=== PATIENT | female | born 1985 | race Caucasian/White ===

== ENCOUNTER 2020-05-11 23:26 | Emergency (ER) | payer OTHER ==
[2020-05-11 23:39] VITALS: BP 107/71; PULSE 59; TEMP 97.8; BMI 24.6
[2020-05-12] MEDS ORDERED: LIDOCAINE 5% TOPICAL PATCH TP ONE (00:41)
[2020-05-12] MEDS ORDERED: ACETAMINOPHEN 325 MG TABLET (FP) PO ONE (00:42)
[2020-05-12] MEDS ORDERED: ACETAMINOPHEN 325 MG TABLET (FP) ONE (00:48)
[2020-05-12] MEDS ORDERED: LIDOCAINE 5% TOPICAL PATCH ONE (00:49)
--- NOTE | 2020-05-12 00:52 | PDOC ---
History of Present Illness - General Chief Complaint: Pain Stated Complaint: PAIN Time Seen by Provider: 05/12/20 00:04 History Source: Patient Exam Limitations: No Limitations - History of Present Illness Initial Comments: 05/12/20 00:43 Senthil Martinez is a 34 Y F with a PMH of Migraine, cervical Pinched nerve, s/p cholecystectomy, s/p hernia repair, presents with 3 days of Left neck pain. Patient reports that the pain started when she woke up, progressive, constant, 7/10 pain, radiating to left upper back and to left arm. Associated with numbness and tingling in left fingers. She reports that the pain is worse at night and worse with movements, bending forward, better with sleeping on right side. She took a muscle relaxer (doesn't remember the name) at home, w/o any relief. She denies any chest pain, SOB, nausea, vomiting, fever, chills, muscle weakness, change in Bowel/urinary habits She also reports a 3d of palpitations last week that resolved. She reports that she has been anxious recently because of stress from her work. She works at a [employer]. Family history significant for mother and father-DM Past History - Medical History Allergies/Adverse Reactions: Allergies Allergy/AdvReac Type Severity Reaction Status Date / Time No Known Allergies Allergy Verified 05/11/20 23:58 Home Medications: Ambulatory Orders Diazepam [Valium] 5 mg PO Q8H PRN #15 tablet MDD 3 05/12/20 Ibuprofen [Motrin -] 600 mg PO TID PRN #90 tablet MDD 3 05/12/20 Asthma: No Cancer: No Cardiac Disorders: No COPD: No Diabetes: No HTN: No Seizures: No Thyroid Disease: No - Surgical History Abdominal Surgery: Yes (INGUINAL HERNIA REPAIR) Cholecystectomy: Yes (2000 due to stones) - Immunization History Immunization Up to Date: Yes - Psycho-Social/Smoking History Smoking Status: No Smoking History: Never smoked Have you smoked in the past 12 months: No Number of Cigarettes Smoked Daily: 0 - Substance Abuse Hx (Audit-C & DAST Scrn) How often the patient has a drink containing alcohol: Never Score: In Men: 4 or > Positive; In Women: 3 or > Positive: 0 Screen Result (Pos requires Nsg. Audit-10AR): Negative Review of Systems - Review of Systems Able to Perform ROS?: Yes Is the patient limited Maori proficient: No Constitutional: No: Chills, Fever, Night Sweats, Weakness HEENTM: No: Blurred Vision, Recent change in vision, Nose Congestion, Throat Pain Respiratory: No: Cough, Shortness of Breath, Wheezing Cardiac (ROS): No: Chest Pain, Palpitations ABD/GI: No: Diarrhea, Nausea, Vomiting : No: Burning, Dysuria Musculoskeletal: Yes: Back Pain (upper left), Neck Pain (left side) Neurological: Yes: Headache, Numbness (left hand/fingers), Tingling (left hand/fingers). No: Weakness, Dizziness Psychiatric: Yes: Anxiety, Stressors (work) *Physical Exam - Vital Signs Last Vital Signs Temp Pulse Resp BP Pulse Ox 97.8 F 59 L 18 107/71 98 05/11/20 23:36 05/11/20 23:36 05/11/20 23:36 05/11/20 23:36 05/11/20 23:36 - Physical Exam General Appearance: Yes: Nourished, Appropriately Dressed HEENT: positive: EOMI, DAVI. negative: Nasal Congestion, Rhinorrhea Neck: positive: Tender (left, dorsal), Supple, Decreased range of motion (due to pain) Respiratory/Chest: positive: Lungs Clear, Normal Breath Sounds. negative: Cr ackles, Rales, Rhonchi Cardiovascular: positive: Regular Rhythm, Regular Rate, S1, S2. negative: JVD, Murmur Vascular Pulses: Carotid (R): 2+, Carotid (L): 2+, Dorsalis-Pedis (R): 2+, Doralis-Pedis (L): 2+ Gastrointestinal/Abdominal: positive: Normal Bowel Sounds, Soft. 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 - EKG - Lido-derm patch for pain - Tylenol 650 for pain Discharge - Discharge Information Problems reviewed: Yes Clinical Impression/Diagnosis: Muscle spasm, Neck pain Condition: Improved Disposition: HOME - Additional Discharge Information Prescriptions: Ibuprofen [Motrin -] 600 mg PO TID PRN #90 tablet MDD 3 PRN Reason: Pain Diazepam [Valium] 5 mg PO Q8H PRN #15 tablet MDD 3 PRN Reason: Pain - Follow up/Referral Referrals: Juan Diego Macdonald [Primary Care Provider] - - Patient Discharge Instructions Patient Printed Discharge Instructions: Neck Pain (Alternative Therapy), DI for Muscle Spasm Additional Instructions: You can take Valium 5 mg every 8 hours as needed for your muscle spasm and pain. However this medication may make you drowsy so it should not be mixed with alcohol or any other sedative medication do not drive after taking the medication. You can also take Motrin 600 mg every 8 hours as needed for pain prescription has been sent to your pharmacy for both of these medications return for any sudden weakness in your arms legs or any concerns you may have for p ersistent pain beyond 2 weeks he may need to follow-up with your primary care doctor for an outpatient MRI - Post Discharge Activity
--- NOTE | 2020-05-12 03:11 | PDOC ---
Documentation entered by Chris Silva SCRIBE, acting as scribe for Itzel Ashley MD. Itzel Ashley MD: This documentation has been prepared by the Shira larson Xhesika, SCRIBE, under my direction and personally reviewed by me in its entirety. I confirm that the documentation accurately reflects all work, treatment, procedures, and medical decision making performed by me. Attending Attestation - Resident Resident Name: RajZain - ED Attending Attestation I have performed the following: I have examined & evaluated the patient, The case was reviewed & discussed with the resident, I agree w/resident's findings & plan, Exceptions are as noted - HPI HPI: 05/12/20 00:34 Patient is a 34 year old female with a PMH of migraine, cholecystectomy, hernia repair who presents to the ED with 3 days of L neck pain. Pt states her L neck pain radiates to her L shoulder/ L scapula and to her L arm. Pt reports her pain is 7-8/10 in severity, associated with L finger and arm tingling. Pt states her symptoms are worse with movements and relieved when lying on her R side. 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 Macdonald 05/12/20 03:05 - Physicial Exam PE: 05/12/20 03:06 Awake alert no acute distress there is no midline cervical thoracic or lumbar spinal tenderness. There is noted left trapezial spasm. Lungs are clear bilaterally heart is regular 30 murmurs rubs or gallops abdomen is soft nont jacklyn skin is warm dry neurologically patient has 5 out of 5 upper extremity strength with both shoulder abduction abduction elbow flexion extension, wrist flexion extension, the median ulnar and radial nerves are intact and sensation is intact throughout - Medical Decision Making 05/12/20 03:06 34-year-old female here today with left neck pain radiating down her left arm noted trapezial spasm on her exam likely radicular pain neurologically patient is fully intact will discharge with prescription for Valium 5 mg to be taken every 8 hours and Motrin 600mg told to return for any new weakness numbness or persistent pain beyond 2 weeks Discharge - Discharge Information Problems reviewed: Yes Clinical Impression/Diagnosis: Muscle spasm, Neck pain Condition: Improved Disposition: HOME - Admission No - Additional Discharge Information Prescriptions: Diazepam [Valium] 5 mg PO Q8H PRN #15 tablet MDD 3 PRN Reason: Pain - Follow up/Referral Referrals: Juan Diego Macdonald [Primary Care Provider] - - Patient Discharge Instructions Patient Printed Discharge Instructions: DI for Muscle Spasm, Neck Pain (Alternative Therapy) Additional Instructions: You can take Valium 5 mg every 8 hours as needed for your muscle spasm and pain. However this medication may make you drowsy so it should not be mixed with alcohol or any other sedative medication do not drive after taking the medication. You can also take Motrin 600 mg every 8 hours as needed for pain prescription has been sent to your pharmacy for both of these medications return for any sudden weakness in your arms legs or any concerns you may have for persistent pain beyond 2 weeks he may need to follow-up with your primary care doctor for an outpatient MRI - Post Discharge Activity
[2020-05-12] MEDS ORDERED: LIDOCAINE PATCH REMOVAL MC SCH (22:00)
--- NOTE | 2020-05-14 10:13 | EKG ---
Test Reason : Blood Pressure : / mmHG Vent. Rate : 055 BPM Atrial Rate : 055 BPM P-R Int : 122 ms QRS Dur : 084 ms QT Int : 422 ms P-R-T Axes : 051 038 034 degrees QTc Int : 403 ms SINUS BRADYCARDIA NONSPECIFIC T WAVE ABNORMALITY ABNORMAL ECG WHEN COMPARED WITH ECG OF 12-APR-2016 07:23, NO SIGNIFICANT CHANGE WAS FOUND Confirmed by Danish Cooley ([id number]) on 05/14/2020 10:13:28 AM Referred By: Confirmed By:Danish Cooley
== END 2020-05-12 03:18 | disposition home or self-care (01) ==
LOC: JER 23:26
DX: M62.830 Muscle spasm of back (principal); M54.2 Cervicalgia
CPT/HCPCS: 93005; 93010; 99283-25

== ENCOUNTER 2021-01-28 13:34 | Emergency (ER) | payer OTHER ==
[2021-01-28 13:44] VITALS: BP 130/71; PULSE 60; TEMP 98.3; BMI 25.0
[2021-01-28] MEDS ORDERED: ACETAMINOPHEN/CAFFEINE/BUTALBITAL 1 TAB ONE (15:18)
[2021-01-28] MEDS ORDERED: ACETAMINOPHEN/CAFFEINE/BUTALBITAL 1 TAB PO ONE (15:19)
== END 2021-01-28 15:46 | disposition home or self-care (01) ==
LOC: JERFT 13:34
DX: G43.109 Migraine with aura, not intractable, without status migrainosus (principal)
CPT/HCPCS: 70450-TC; 99284-25

== ENCOUNTER 2021-06-04 17:25 | Emergency (ER) | payer OTHER ==
[2021-06-04 17:36] VITALS: TEMP 98; BMI 24.9
[2021-06-04 19:33] LABS: BASO % 0.1 % (0-2.0); EOS % 1.8 % (0-4.5); HEMATOCRIT 43.5 % (32.4-45.2); HEMOGLOBIN 15.3 GM/dL (10.7-15.3); LYMPH % 34.2 % (8-40); MCH 32.1 pg (25.7-33.7); MCHC 35.2 g/dl (32.0-36.0); MEAN CELL VOLUME 91.3 fl (80-96); MEAN PLT VOLUME 9.1 fl (7.5-11.1); MONO % 4.9 % (3.8-10.2); PLATELET COUNT 225 10^3/uL (134-434); RBC 4.77 M/mm3 (3.60-5.2); RDW 12.7 % (11.6-15.6); WHITE BLOOD COUNT 9.8 K/mm3 (4.0-10.0)
[2021-06-04 19:40] LABS: INR 0.96 (0.83-1.09); PROTHROMBIN TIME (PATIENT) 11.6 SEC (9.7-13.0)
[2021-06-04 19:43] LABS: ACTIVATED PTT 31.4 SECONDS (25.2-36.5)
[2021-06-04 19:53] LABS: CHLORIDE 102 mmol/L (98-107); SODIUM 137 mmol/L (136-145)
[2021-06-04 19:55] LABS: CALCIUM 9.5 mg/dL (8.5-10.1)
[2021-06-04 19:56] LABS: ALBUMIN 4.4 g/dl (3.4-5.0); ANION GAP 7 MMOL/L (8-16); BLOOD UREA NITROGEN 14.1 mg/dL (7-18); CO2 29 mmol/L (21-32); GLUCOSE,RANDOM 82 mg/dL (74-106); MAGNESIUM 2.5 mg/dL (1.8-2.4)
[2021-06-04 19:59] LABS: CREATININE 0.9 mg/dL (0.55-1.3); SGOT/AST 9 U/L (15-37); SGPT/ALT 23 U/L (13-61)
[2021-06-04 20:00] LABS: BILIRUBIN,TOTAL 0.4 mg/dL (0.2-1); TOT PROT 8.2 g/dl (6.4-8.2)
[2021-06-04 20:02] LABS: ALK PHOS 64 U/L (45-117)
[2021-06-04 20:44] VITALS: BP 123/76; PULSE 66
== END 2021-06-04 20:44 | disposition home or self-care (01) ==
LOC: JER 17:25
DX: R00.2 Palpitations (principal)
CPT/HCPCS: 36415; 71046-TC-FY; 80053; 82550; 83735; 84484; 84703; 85025; 85379; 85610; 85730; 93005; 93010; 99285-25

== ENCOUNTER 2021-10-25 08:16 | Emergency (ER) | payer OTHER ==
[2021-10-25 08:53] VITALS: BP 101/66; PULSE 62; TEMP 98.1; BMI 25.5
[2021-10-25 10:33] LABS: BASO % 0.2 % (0-2.0); EOS % 3.1 % (0-4.5); HEMATOCRIT 43.3 % (32.4-45.2); HEMOGLOBIN 14.6 GM/dL (10.7-15.3); LYMPH % 25.5 % (8-40); MCH 30.9 pg (25.7-33.7); MCHC 33.8 g/dl (32.0-36.0); MEAN CELL VOLUME 91.4 fl (80-96); MEAN PLT VOLUME 8.8 fl (7.5-11.1); MONO % 5.8 % (3.8-10.2); NEUT % 65.4 % (42.8-82.8); PLATELET COUNT 209 10^3/uL (134-434); RBC 4.74 M/mm3 (3.60-5.2); RDW 13.1 % (11.6-15.6); WHITE BLOOD COUNT 7.1 K/mm3 (4.0-10.0)
[2021-10-25 11:08] LABS: EPI CELLS 15 /uL (0-25.1); HYALINE CASTS 1 /uL (0-3.1); PH,URINE 5.5 (5.0-8.0); URINE APPEARANCE CLOUDY; URINE BACTERIA 19 /uL (0-1359); URINE BILIRUBIN NEGATIVE (NEGATIVE); URINE COLOR ORANGE; URINE GLUCOSE (UA) NEGATIVE (NEGATIVE); URINE KETONE NEGATIVE (NEGATIVE); URINE LEUK ESTERASE 1+ (NEGATIVE); URINE NITRITE NEGATIVE (NEGATIVE); URINE PROTEIN TRACE (NEGATIVE); URINE RBC 12025 /uL (0-23.9); URINE WBC 125 /uL (0-25.8)
== END 2021-10-25 15:30 | disposition home or self-care (01) ==
LOC: JER 08:16
DX: O03.9 Complete or unspecified spontaneous abortion without complication (principal)
CPT/HCPCS: 36415; 76817-TC; 81003; 84702; 84703; 85025; 86850; 86900; 86901; 87086; 99284-25

== ENCOUNTER 2021-11-11 02:49 | Emergency (ER) | payer OTHER ==
[2021-11-11 02:59] VITALS: BMI 25.5
[2021-11-11] MEDS ORDERED: SODIUM CHLORIDE 0.9% 500 ML INFUS.BAG IV ONE (03:05)
[2021-11-11 06:21] VITALS: BP 114/79; PULSE 90; TEMP 97
== END 2021-11-11 06:36 | disposition home or self-care (01) ==
LOC: JER 02:49
DX: F12.90 Cannabis use, unspecified, uncomplicated (principal)
CPT/HCPCS: 82962; 99284-25

== ENCOUNTER 2022-01-25 10:23 | Emergency (ER) | payer OTHER ==
[2022-01-25 10:41] VITALS: BP 115/80; PULSE 87; TEMP 97.6; BMI 25.4
== END 2022-01-25 12:40 | disposition home or self-care (01) ==
LOC: JERFT 10:23 → JER 10:23 → JERFT 12:40
DX: F41.9 Anxiety disorder, unspecified (principal)
CPT/HCPCS: 99281-25

== ENCOUNTER 2022-03-24 09:54 | Emergency (ER) | payer OTHER ==
[2022-03-24 10:20] VITALS: BP 103/69; PULSE 77; TEMP 98.5; BMI 24.0
[2022-03-24 12:11] LABS: BASO % 0.2 % (0-2.0); EOS % 0.8 % (0-4.5); HEMATOCRIT 43.5 % (32.4-45.2); HEMOGLOBIN 15.2 GM/dL (10.7-15.3); LYMPH % 25.7 % (8-40); MCH 31.6 pg (25.7-33.7); MEAN CELL VOLUME 90.5 fl (80-96); MEAN PLT VOLUME 9.2 fl (7.5-11.1); MONO % 5.2 % (3.8-10.2); NEUT % 68.1 % (42.8-82.8); PLATELET COUNT 197 10^3/uL (134-434); RBC 4.81 M/mm3 (3.60-5.2); RDW 13.1 % (11.6-15.6); WHITE BLOOD COUNT 6.8 K/mm3 (4.0-10.0)
[2022-03-24 12:25] LABS: CALCIUM 9.8 mg/dL (8.5-10.1)
[2022-03-24 12:26] LABS: ALBUMIN 4.2 g/dl (3.4-5.0); BLOOD UREA NITROGEN 7.7 mg/dL (7-18)
[2022-03-24 12:29] LABS: CREATININE 0.7 mg/dL (0.55-1.3)
[2022-03-24 12:30] LABS: BILIRUBIN,TOTAL 0.6 mg/dL (0.2-1)
[2022-03-24 13:49] LABS: CALCIUM 9.9 mg/dL (8.5-10.1)
[2022-03-24 13:50] LABS: ALBUMIN 4.1 g/dl (3.4-5.0); BLOOD UREA NITROGEN 10.2 mg/dL (7-18)
[2022-03-24 13:53] LABS: CREATININE 0.7 mg/dL (0.55-1.3)
[2022-03-24 13:55] LABS: BILIRUBIN,TOTAL 0.4 mg/dL (0.2-1); TOT PROT 7.8 g/dl (6.4-8.2)
== END 2022-03-24 13:46 | disposition home or self-care (01) ==
LOC: JER 09:54
DX: R20.2 Paresthesia of skin (principal)
CPT/HCPCS: 36415; 71046-TC-FY; 80053; 84443; 84484; 84703; 85025; 93005; 93010; 99285-25

== ENCOUNTER 2022-11-05 17:18 | Emergency (ER) | payer OTHER ==
[2022-11-05 17:25] VITALS: RESP 14; BMI 24.5
[2022-11-05 18:08] VITALS: BP 91/61; PULSE 81; TEMP 100
[2022-11-05] MEDS ORDERED: ONDANSETRON 4 MG/2 ML VIAL IVPUSH ONE (18:09)
[2022-11-05] MEDS ORDERED: SODIUM CHLORIDE 0.9% 500 ML INFUS.BAG IV ONE (18:09)
[2022-11-05] MEDS ORDERED: ONDANSETRON 4 MG/2 ML VIAL ONE (18:15)
[2022-11-05 18:57] LABS: BASO % 0.2 % (0-2.0); EOS % 1.2 % (0-4.5); HEMATOCRIT 41.2 % (32.4-45.2); LYMPH % 19.3 % (8-40); MCH 30.9 pg (25.7-33.7); MEAN CELL VOLUME 90.9 fl (80-96); MEAN PLT VOLUME 8.7 fl (7.5-11.1); NEUT % 73.3 % (42.8-82.8); PLATELET COUNT 232 10^3/uL (134-434); RBC 4.54 M/mm3 (3.60-5.2); RDW 12.8 % (11.6-15.6); WHITE BLOOD COUNT 10.5 K/mm3 (4.0-10.0)
[2022-11-05 19:01] LABS: EPI CELLS 26 /uL (0-25.1); HYALINE CASTS 0 /uL (0-3.1); URINE APPEARANCE CLEAR; URINE BACTERIA 564 /uL (0-1359); URINE BILIRUBIN NEGATIVE (NEGATIVE); URINE COLOR YELLOW; URINE GLUCOSE (UA) NEGATIVE (NEGATIVE); URINE KETONE NEGATIVE (NEGATIVE); URINE LEUK ESTERASE 2+ (NEGATIVE); URINE NITRITE NEGATIVE (NEGATIVE); URINE PROTEIN NEGATIVE (NEGATIVE); URINE RBC 14 /uL (0-23.9); URINE UROBILINOGEN 0.2 mg/dL (0.2-1.0); URINE WBC 29 /uL (0-25.8)
[2022-11-05 19:15] LABS: CHLORIDE 99 mmol/L (98-107); SODIUM 134 mmol/L (136-145)
[2022-11-05 19:19] LABS: CALCIUM 9.1 mg/dL (8.5-10.1)
[2022-11-05 19:20] LABS: ALBUMIN 3.4 g/dl (3.4-5.0); BLOOD UREA NITROGEN 12.6 mg/dL (7-18); CO2 28 mmol/L (21-32); GLUCOSE,RANDOM 103 mg/dL (74-106); MAGNESIUM 2.2 mg/dL (1.8-2.4)
[2022-11-05 19:23] LABS: CREATININE 0.8 mg/dL (0.55-1.3); SGOT/AST 62 U/L (15-37)
[2022-11-05 19:24] LABS: BILIRUBIN,TOTAL 0.4 mg/dL (0.2-1)
[2022-11-05 19:25] LABS: TOT PROT 7.3 g/dl (6.4-8.2)
[2022-11-05 19:26] LABS: ALK PHOS 53 U/L (45-117)
[2022-11-05 19:34] LABS: ANION GAP 7 MMOL/L (8-16); SGPT/ALT 27 U/L (13-61)
== END 2022-11-05 21:25 | disposition home or self-care (01) ==
LOC: JER 17:18
PROC: 3E033GC Introduction of Other Therapeutic Substance into Peripheral Vein, Percutaneous Approach (ICD-10-PCS; principal; 2022-11-05)
DX: O26.891 Other specified pregnancy related conditions, first trimester (principal); R53.83 Other fatigue; Z3A.01 Less than 8 weeks gestation of pregnancy
CPT/HCPCS: 36415; 80053; 81003; 83735; 84132; 84443; 85025; 87086; 93005; 93010; 99284-25

== ENCOUNTER 2023-06-22 18:20 | Inpatient (IN) | payer OTHER ==
[2023-06-22] MEDS ORDERED: BUTORPHANOL TARTRATE 1 MG/ML VIAL IVPB PRN (20:06)
[2023-06-22 20:10] VITALS: BMI 30.1
[2023-06-22 20:17] LABS: HEMATOCRIT 39.7 % (32.4-45.2); HEMOGLOBIN 14.1 GM/dL (10.7-15.3); LYMPH % 25.1 % (8-40); MCH 31.7 pg (25.7-33.7); MCHC 35.7 g/dl (32.0-36.0); MEAN PLT VOLUME 9.4 fl (7.5-11.1); NEUT % 66.9 % (42.8-82.8); PLATELET COUNT 165 10^3/uL (134-434); RBC 4.46 M/mm3 (3.60-5.2); RDW 13.9 % (11.6-15.6); WHITE BLOOD COUNT 8.9 K/mm3 (4.0-10.0)
[2023-06-22 20:29] LABS: INR 0.87 (0.83-1.09); PROTHROMBIN TIME (PATIENT) 10.1 SEC (9.7-13.0)
[2023-06-22] MEDS ORDERED: ELECTROLYTE-148 SOLN 1,000 ML IV SCH (20:30)
[2023-06-22 20:32] LABS: ACTIVATED PTT 27.2 SECONDS (25.2-36.5)
[2023-06-22 20:33] LABS: BLOOD UREA NITROGEN 7.8 mg/dL (7-18); CALCIUM 9.3 mg/dL (8.5-10.1)
[2023-06-22 20:36] LABS: CREATININE 0.6 mg/dL (0.55-1.3)
[2023-06-22 21:26] LABS: HIV INTERPRETATION NEGATIVE (NEGATIVE)
[2023-06-22] MEDS ORDERED: OXYTOCIN 30 UNITS in 0.9% NS 30 UNIT/500 ML INFUS.BAG IVPB SCH (22:00)
[2023-06-22] MEDS ORDERED: OXYTOCIN 20 UNITS in 0.9% NS 20 UNIT/1,000 ML INFUS.BAG IV ONE (22:38)
[2023-06-22] MEDS ORDERED: BENZOCAINE 20% 57 GM BOTTLE TP PRN (22:43)
[2023-06-22] MEDS ORDERED: BENZOCAINE 28 GM HEMORRHOIDAL OINTMENT TP PRN (22:43)
[2023-06-22] MEDS ORDERED: BISACODYL 10 MG SUPP.RECT RC PRN (22:43)
[2023-06-22] MEDS ORDERED: WITCH HAZEL 50% (TUCKS) 40 PAD/JAR PAD TP PRN (22:43)
[2023-06-22] MEDS ORDERED: METHYLERGONOVINE MALEATE 0.2 MG/1 ML AMP IM PRN (22:43)
[2023-06-22] MEDS ORDERED: oxyCODONE HCL 5 MG TABLET PO PRN (22:43)
[2023-06-22] MEDS ORDERED: ACETAMINOPHEN 325 MG TABLET (FP) PO PRN (22:43)
[2023-06-22] MEDS ORDERED: OXYTOCIN 20 UNITS in 0.9% NS 20 UNIT/1,000 ML INFUS.BAG IV SCH (22:45)
[2023-06-23 00:05] LABS: CORD BASE EXCESS -3.7 mmol/L (0-2); CORD HCO3 21.3 mmHg (20-29); CORD PCO2 38.9 mmHg (30-78); CORD pH 7.357 (7.14-7.44)
[2023-06-23] MEDS ORDERED: IBUPROFEN 600 MG TABLET (FP) PO ONE (00:34)
[2023-06-23] MEDS: IBUPROFEN 600 MG TABLET (FP) PO PRN ×3 (00:38→17:21)
[2023-06-23 08:45] LABS: BASO % 0.2 % (0-2.0); EOS % 0.4 % (0-4.5); HEMATOCRIT 35.4 % (32.4-45.2); HEMOGLOBIN 12.6 GM/dL (10.7-15.3); LYMPH % 17.4 % (8-40); MCH 31.8 pg (25.7-33.7); MCHC 35.6 g/dl (32.0-36.0); MEAN CELL VOLUME 89.3 fl (80-96); MEAN PLT VOLUME 9.3 fl (7.5-11.1); MONO % 7.2 % (3.8-10.2); NEUT % 74.8 % (42.8-82.8); PLATELET COUNT 150 10^3/uL (134-434); RBC 3.96 M/mm3 (3.60-5.2); RDW 13.7 % (11.6-15.6); WHITE BLOOD COUNT 13.8 K/mm3 (4.0-10.0)
[2023-06-23] MEDS: PRENATAL VITAMINS W/ FOLIC ACID TABLET (FP) PO SCH (09:26)
[2023-06-23] MEDS: FERROUS SO4 325 MG TABLET (FP) PO SCH ×3 (09:26→17:21)
[2023-06-23] MEDS ORDERED: SENNOSIDES/DOCUSATE COMBO (SENNA PLUS) TABLET (UD) PO PRN (22:00)
[2023-06-24] MEDS: PRENATAL VITAMINS W/ FOLIC ACID TABLET (FP) PO SCH (09:25)
[2023-06-24] MEDS: FERROUS SO4 325 MG TABLET (FP) PO SCH ×3 (09:25→17:42)
[2023-06-24 18:13] LABS: BASO % 0.1 % (0-2.0); EOS % 1.3 % (0-4.5); HEMATOCRIT 33.5 % (32.4-45.2); HEMOGLOBIN 11.4 GM/dL (10.7-15.3); LYMPH % 25.8 % (8-40); MCH 31.6 pg (25.7-33.7); MCHC 34.1 g/dl (32.0-36.0); MEAN CELL VOLUME 92.5 fl (80-96); MEAN PLT VOLUME 9.9 fl (7.5-11.1); MONO % 5.3 % (3.8-10.2); NEUT % 67.5 % (42.8-82.8); PLATELET COUNT 167 10^3/uL (134-434); RBC 3.62 M/mm3 (3.60-5.2); RDW 13.6 % (11.6-15.6); WHITE BLOOD COUNT 8.4 K/mm3 (4.0-10.0)
[2023-06-25] MEDS: FERROUS SO4 325 MG TABLET (FP) PO SCH ×2 (09:33→13:00)
[2023-06-25] MEDS: PRENATAL VITAMINS W/ FOLIC ACID TABLET (FP) PO SCH (09:33)
[2023-06-25 10:24] VITALS: BP 108/64; PULSE 66; RESP 18; TEMP 98.4
== END 2023-06-25 18:10 | disposition home or self-care (01) | DRG 560 ==
LOC: JDEL 18:20 → JLDR 18:45 → J3W 06-23 01:58
PROVIDERS: ADMIT Obstetrics & Gynecology; ATTEND Obstetrics & Gynecology
PROC: 10E0XZZ Delivery of Products of Conception, External Approach (ICD-10-PCS; principal; 2023-06-22)
PROC: 0HQ9XZZ Repair Perineum Skin, External Approach (ICD-10-PCS; 2023-06-22)
DX: O70.0 First degree perineal laceration during delivery (principal); Z3A.39 39 weeks gestation of pregnancy; Z37.0 Single live birth
CPT/HCPCS: 36415; 36600; 76819-TC; 80048; 82803; 85025; 85610; 85730; 86780; 86850; 86880; 86900; 86901; 87389

== ENCOUNTER 2024-02-22 00:16 | Emergency (ER) | payer OTHER ==
[2024-02-22 00:23] VITALS: BP 135/91; PULSE 86; RESP 18; TEMP 98.5; BMI 29.3
[2024-02-22] MEDS ORDERED: LIDOCAINE 4% PATCH TP ONE (00:51)
[2024-02-22] MEDS ORDERED: ACETAMINOPHEN INJECTION 100 ML IVPB ONE (00:51)
[2024-02-22] MEDS: LIDOCAINE 4% PATCH TP ONE (01:08)
[2024-02-22] MEDS: ACETAMINOPHEN 1000 MG/100 ML BAG IVPB ONE (01:08)
[2024-02-22 01:19] LABS: BASO % 0.4 % (0-2.0); EOS % 2.2 % (0-4.5); HEMATOCRIT 39.2 % (32.4-45.2); HEMOGLOBIN 13.8 GM/dL (10.7-15.3); LYMPH % 36.2 % (8-40); MCH 31.6 pg (25.7-33.7); MCHC 35.2 g/dl (32.0-36.0); MEAN CELL VOLUME 89.7 fl (80-96); MEAN PLT VOLUME 8.5 fl (7.5-11.1); MONO % 6.7 % (3.8-10.2); NEUT % 54.5 % (42.8-82.8); PLATELET COUNT 203 10^3/uL (134-434); RBC 4.37 M/mm3 (3.60-5.2); WHITE BLOOD COUNT 8.4 K/mm3 (4.0-10.0)
[2024-02-22 01:20] LABS: INR 0.99 (0.83-1.09); PROTHROMBIN TIME (PATIENT) 11.2 SEC (9.7-13.0)
[2024-02-22 01:22] LABS: ACTIVATED PTT 33.9 SECONDS (25.2-36.5)
[2024-02-22 01:35] LABS: CALCIUM 9.2 mg/dL (8.5-10.1)
[2024-02-22 01:37] LABS: ALBUMIN 3.8 g/dl (3.4-5.0); BLOOD UREA NITROGEN 15.2 mg/dL (7-18)
[2024-02-22 01:38] LABS: CREATININE 0.9 mg/dL (0.55-1.3)
[2024-02-22] MEDS ORDERED: KETOROLAC TROMETHAMINE 15 MG/ML VIAL ONE (01:39)
[2024-02-22 01:40] LABS: BILIRUBIN,TOTAL 0.3 mg/dL (0.2-1)
[2024-02-22] MEDS: KETOROLAC TROMETHAMINE 15 MG/ML VIAL IVPUSH ONE (01:45)
[2024-02-22] MEDS ORDERED: LIDOCAINE PATCH REMOVAL MC SCH (22:00)
== END 2024-02-22 02:21 | disposition home or self-care (01) ==
LOC: JER 00:16
PROC: 3E033NZ Introduction of Analgesics, Hypnotics, Sedatives into Peripheral Vein, Percutaneous Approach (ICD-10-PCS; principal; 2024-02-22)
PROC: 3E0333Z Introduction of Anti-inflammatory into Peripheral Vein, Percutaneous Approach (ICD-10-PCS; 2024-02-22)
DX: M54.2 Cervicalgia (principal); M54.9 Dorsalgia, unspecified; R07.9 Chest pain, unspecified
CPT/HCPCS: 36415; 71045-TC-FY; 80053; 84484; 84703; 85025; 85610; 85730; 93005; 93010; 99285-25; J0131

== ENCOUNTER 2024-07-06 22:57 | Emergency (ER) | payer OTHER ==
[2024-07-06 23:03] VITALS: BP 108/70; PULSE 62; RESP 18; TEMP 98.1; BMI 27.3
[2024-07-06] MEDS ORDERED: diphenhydrAMINE HCL 25 MG CAPSULE (FP) PO ONE (23:51)
[2024-07-06] MEDS ORDERED: predniSONE 20 MG TABLET (UD) ONE (23:51)
[2024-07-06] MEDS: predniSONE 20 MG TABLET (UD) PO ONE (23:54)
[2024-07-06] MEDS: diphenhydrAMINE HCL 25 MG CAPSULE (FP) PO ONE (23:54)
== END 2024-07-07 00:19 | disposition home or self-care (01) ==
LOC: JER 22:57
DX: L50.0 Allergic urticaria (principal)
CPT/HCPCS: 99283-25